=== PATIENT | female | born 1950 | race Native Hawaiian/Other Pacific Islander ===

== ENCOUNTER 2017-01-18 11:38 | Outpatient (CLI) | payer MEDICARE ==
--- NOTE | 2017-01-18 12:21 | Mammography Report ---
BILATERAL MAMMOGRAM: FINDINGS: The breasts are almost entirely fat (<25% glandular). No mass, distortion, suspicious calcification, or skin change is seen. There is no significant change compared to her prior exam in December 2015. CAD was utilized. IMPRESSION: Negative mammogram. There is no mammographic evidence of malignancy. RECOMMENDATION: Follow-up per ACS guidelines. BI-RADS CATEGORY: 1 = Negative ACR BI-RADS MAMMOGRAPHIC CODES: 0 = Needs additional imaging evaluation; 1 = Negative; 2 = Benign; 3 = Probably benign; 4 = Suspicious; 5 = Malignant; 6 = Known biopsy-proven malignancy COMMENT: 1. Dense breast tissue, i.e., adenosis, fibrocystic changes, etc., may obscure an underlying neoplasm. 2. Approximately 10% of cancers are not detected with mammography. 3. A negative mammography report should not delay biopsy if a clinically suspicious mass is present. COMMENT: Patient follow-up letters are generated in [employer].
== END 2017-01-18 11:39 | disposition home or self-care (01) ==
LOC: SPVWC 11:38
PROVIDERS: ATTEND Obstetrics & Gynecology Gynecology
DX: Z12.31 Encounter for screening mammogram for malignant neoplasm of breast (principal)
CPT/HCPCS: 77067; G0202

== ENCOUNTER 2018-03-09 09:54 | Outpatient (CLI) | payer MEDICARE ==
--- NOTE | 2018-03-09 16:33 | Mammography Report ---
DEXA VERTEBRAL FRACTURE ASSESSMENT: 03/09/18 10:15:00 CLINICAL: Compression fracture spine TECHNIQUE: Quantitative measurements of vertebral body height were taken at 3 points from T4 to L4 according to the Genant semi-quantitative method of fracture assessment. FINDINGS: Minimal (grade 0) anterior wedge deformity at T4, and minimal (grade 0) mid wedge deformities at T6, T7 and T8. IMPRESSION: Minimal deformities at T4, T6, T7 and T8. Spinal Deformity Index = 0.
== END 2018-03-09 09:55 | disposition home or self-care (01) ==
LOC: MAMMO 09:54
PROVIDERS: ATTEND Obstetrics & Gynecology Gynecology
DX: M43.8X4 Other specified deforming dorsopathies, thoracic region (principal)
CPT/HCPCS: 77086

== ENCOUNTER 2018-12-12 09:47 | Outpatient (CLI) | payer MEDICARE ==
--- NOTE | 2018-12-12 13:37 | Mammography Report ---
BILATERAL DIGITAL SCREENING MAMMOGRAM with CAD: 12/12/18 09:47:00 CLINICAL: Routine screening. COMPARISON:01/18/17 FINDINGS: The breasts are almost entirely fatty. No mass, architectural distortion or suspicious calcifications. IMPRESSION: No mammographic evidence of malignancy. BI-RADS CATEGORY: 1 - - Negative RECOMMENDATION: Routine mammographic screening in one year. COMMENT: Patient follow-up letters are generated by our [employer] application.
--- NOTE | 2018-12-12 13:39 | Mammography Report ---
BONE DEXA:12/12/18 09:47:00 CLINICAL: Postmenopausal. COMPARISON: 01/13/16 TECHNIQUE: Two site bone DEXA performed on an Hologic scanner. FINDINGS: The average BMD of the lumbar spine L1-L4 is 0.973g/cm squared with a T-score of -0.7 and a Z-score of +1.3. This compares to 0.928g/cm squared on the last exam and represents a +4.9% change from the previous baseline. The average BMD of the left hip is 0.907g/cm squared with a T-score of -0.3 and a Z-score of +1.1. This compares to 0.886g/cm squared on the last exam and represents a -0.3% change from the previous baseline. IMPRESSION: WHO classification: Normal with average fracture risk based on L-spine and left hip measurements. RECOMMENDATION: Clinical correlation and routine screening. DEFINITIONS: BMD = Bone Mineral Density T-score = BMD related to mean peak bone mass of young adult (mean expressed in Standard Deviation) Z-score = Age matched BMD expressed in SD World Health Organization (WHO) Diagnostic Criteria Normal T-score > -1 SD Osteopenia T-score between -1 and -2.4 SD Osteoporosis T-score -2.5 SD or below NOTE: BMD is not the only risk factor for fracture; also consider factors such as the patient's age, risk of falling, previous osteoporotic fracture, family history of osteoporotic fractures, current smoker, and low body weight. Z-scores are not calculated if >80 years of age.
== END 2018-12-12 09:48 | disposition home or self-care (01) ==
LOC: SPVWC 09:47
PROVIDERS: ATTEND Obstetrics & Gynecology
DX: Z12.31 Encounter for screening mammogram for malignant neoplasm of breast (principal); Z13.820 Encounter for screening for osteoporosis; Z78.0 Asymptomatic menopausal state
CPT/HCPCS: 77067; 77080

== ENCOUNTER 2021-03-07 13:01 | Outpatient (CLI) | payer MEDICARE | END 2021-03-07 13:02 | disposition home or self-care (01) | LOC: SPVWC 13:01 | PROVIDERS: ATTEND Obstetrics & Gynecology | DX: Z12.31 Encounter for screening mammogram for malignant neoplasm of breast (principal) | CPT/HCPCS: 77063; 77067 ==